=== PATIENT | female | born 1970 | race Caucasian/White ===

== ENCOUNTER 2020-04-15 13:42 | Observation (INO) ==
[~2020-04-15 13:42] MED LIST: DECADRON INJ ONE; DIPRIVAN VIAL ONE; NEOSTIGMINE INJ ONE; NORCURON INJ 10 MG VIAL ONE; QUELICIN (OR ANECTINE) ONE; ROBINUL ONE; SUPRANE ONE; VERSED ONE; ZOFRAN INJ 4 MG VIAL ONE
[2020-04-15 13:51] VITALS: BMI 48.9
--- NOTE | 2020-04-15 14:35 | DR.NAUSEAF ---
HPI Time Seen Time Seen by Provider: 04/15/20 14:35 Primary Care Physician Primary Care Physician: ERICA Complaints Chief Complaint:: PT. C/O NAUSEA/VOMITING/DIARRHEA. PT. C/O ABDOMINAL PAIN. PT. HAD HERNIA REPAIR LAST YEAR. PT. SEEN DR. MALDONADO ON THURSDAY. COVID-19 Coronavirus risk:travel/contact w/high risk person: No Has patient experienced Coronavirus symptoms: No Source History Provided: Patient Mode of Arrival Mode of Arrival: Ambulatory Timing Onset of Chief Complaint: 04/13/20 PMH PMH Past Medical History: Yes Past Medical History: Hypertension Past Surgical History: Yes Surgical History: , Cholecystectomy and Other Past Surgical History Comment: HERNIA REPAIR Family History History of Family Medical Conditions: Yes Family Medical History: Diabetes Mellitus, Cancer and Hypertension Social History Does patient currently use any type of tobacco product: No Have you used tobacco products in the last 12 months: No Type of Tobacco Use: None Does any household member use tobacco: No Alcohol Use: None Do you use any recreational Drugs:: No Lives With: Spouse Lives Where: Home Travel Risk Coronavirus risk:travel/contact w/high risk person: No Has patient experienced Coronavirus symptoms: No Infectious screening In the last 2 months have you had wt loss of >10#?: NO Have you had fever, night sweats or hemotysis?: No Have you traveled outside the country in the last 6 months?: No Isolation: Standard PE Vital Signs Vitals: Temperature 97.2 F Pulse Rate 112 Respiratory Rate 17 Blood Pressure [Left Arm] 126/59 Blood Pressure [Right Arm] 134/78 Blood Pressure 139/87 O2 Sat by Pulse Oximetry 95 ROR Labs Reviewed Result Diagrams: 04/15/20 15:05 04/15/20 15:05 Laboratory: WBC 10.7 X10^3/uL (3.6-10.0) H 04/15/20 15:05 RBC 4.68 X10^6/uL (3.5-5.4) 04/15/20 15:05 Hgb 13.4 g/dL (12.0-16.0) 04/15/20 15:05 Hct 40.1 % (36.0-47.0) 04/15/20 15:05 MCV 85.6 fL (80.0-100.0) 04/15/20 15:05 MCH 28.7 pg (27.0-34.0) 04/15/20 15:05 MCHC 33.5 g/dL (33.0-35.0) 04/15/20 15:05 RDW 14.3 % (11.6-16.5) 04/15/20 15:05 Plt Count 393 X10^3/uL (150.0-450.0) 04/15/20 15:05 MPV 6.9 fL (7.4-11.0) L 04/15/20 15:05 Neut % (Auto) 73.2 % (42.0-75.0) 04/15/20 15:05 Lymph % (Auto) 19.1 % (21.0-51.0) L 04/15/20 15:05 [place] % (Auto) 6.1 % (0.0-13.0) 04/15/20 15:05 Eos % (Auto) 1.1 % (0.9-2.9) 04/15/20 15:05 Baso % (Auto) 0.5 % (0.2-1.0) 04/15/20 15:05 Neut # (Auto) 7.8 x10^3/uL (2.2-4.8) H 04/15/20 15:05 Lymph # (Auto) 2.0 X10^3/uL (1.3-2.9) 04/15/20 15:05 [place] # (Auto) 0.7 x10^3/uL (0.3-0.8) 04/15/20 15:05 Eos # (Auto) 0.1 x10^3/uL (0.0-0.2) 04/15/20 15:05 Baso # (Auto) 0.1 X10^3/uL (0.0-0.1) 04/15/20 15:05 Absolute Nucleated RBC 0.0 /100WBC 04/15/20 15:05 Sodium 137 mmol/L (136-145) 04/15/20 15:05 Corrected Sodium TNP 04/15/20 15:05 Potassium 3.9 mmol/L (3.5-5.1) 04/15/20 15:05 Chloride 98 mmol/L (98-107) 04/15/20 15:05 Carbon Dioxide 32.8 mmol/L (21-32) H 04/15/20 15:05 BUN 19 mg/dL (7-18) H 04/15/20 15:05 Creatinine 1.03 mg/dL (0.55-1.02) H 04/15/20 15:05 Est GFR (MDRD) Af Amer > 60 (>60) 04/15/20 15:05 Est GFR (MDRD) Non-Af > 60 (>60) 04/15/20 15:05 Glucose 106 mg/dL (65-99) H 04/15/20 15:05 Calcium 9.3 mg/dL (8.5-10.1) 04/15/20 15:05 Corrected Calcium TNP 04/15/20 15:05 Total Bilirubin 0.60 mg/dL (0.2-1.0) 04/15/20 15:05 AST 37 Units/L (15-37) 04/15/20 15:05 ALT 68 Units/L (12-78) 04/15/20 15:05 Alkaline Phosphatase 81 Units/L (46-116) 04/15/20 15:05 Total Protein 9.1 g/dL (6.4-8.2) H 04/15/20 15:05 Albumin 4.2 g/dL (3.4-5.0) 04/15/20 15:05 Globulin 4.9 g/dL (2.5-4.5) H 04/15/20 15:05 Albumin/Globulin Ratio 0.9 Ratio (1.1-2.1) L 04/15/20 15:05 Amylase 32 Units/L (25-115) 04/15/20 15:05 Lipase 88 Units/L (73-393) 04/15/20 15:05 Opioid Opioid Risk Tool Age (Irineo box if 16-45): No History of Preadolescent Sexual Abuse: No Total: 0 Total Score Risk Category: Low Risk Copyright: Torres PARKER predicting aberrant behaviors
[2020-04-15] MEDS ORDERED: ZOFRAN INJ 4 MG VIAL ONE (15:02)
[2020-04-15] MEDS ORDERED: ZOFRAN INJ 4 MG VIAL IVP ONE (15:02)
[2020-04-15 15:14] LABS: BASOPHILS # (AUTO) 0.1 X10^3/uL (0.0-0.1); BASOPHILS % (AUTO) 0.5 % (0.2-1.0); EOSINOPHILS # (AUTO) 0.1 x10^3/uL (0.0-0.2); EOSINOPHILS % (AUTO) 1.1 % (0.9-2.9); HEMATOCRIT 40.1 % (36.0-47.0); HEMOGLOBIN 13.4 g/dL (12.0-16.0); LYMPHOCYTES % (AUTO) 19.1 % (21.0-51.0); MEAN CORPUSCULAR HEMOGLOBIN 28.7 pg (27.0-34.0); MEAN CORPUSCULAR HGB CONC 33.5 g/dL (33.0-35.0); MEAN CORPUSCULAR VOLUME 85.6 fL (80.0-100.0); MEAN PLATELET VOLUME 6.9 fL (7.4-11.0); MONOCYTES # (AUTO) 0.7 x10^3/uL (0.3-0.8); MONOCYTES % (AUTO) 6.1 % (0.0-13.0); NEUTROPHILS # (AUTO) 7.8 x10^3/uL (2.2-4.8); NEUTROPHILS % (AUTO) 73.2 % (42.0-75.0); PLATELET COUNT 393 X10^3/uL (150.0-450.0); RED BLOOD COUNT 4.68 X10^6/uL (3.5-5.4); RED CELL DISTRIBUTION WIDTH 14.3 % (11.6-16.5); WHITE BLOOD COUNT 10.7 X10^3/uL (3.6-10.0)
[2020-04-15 15:26] LABS: ALANINE AMINOTRANSFERASE 68 Units/L (12-78); ALBUMIN 4.2 g/dL (3.4-5.0); ALKALINE PHOSPHATASE 81 Units/L (46-116); AMYLASE 32 Units/L (25-115); ASPARTATE AMINO TRANSFERASE 37 Units/L (15-37); BLOOD UREA NITROGEN 19 mg/dL (7-18); CALCIUM 9.3 mg/dL (8.5-10.1); CARBON DIOXIDE 32.8 mmol/L (21-32); CHLORIDE 98 mmol/L (98-107); CREATININE 1.03 mg/dL (0.55-1.02); LIPASE 88 Units/L (73-393); SODIUM 137 mmol/L (136-145); TOTAL PROTEIN 9.1 g/dL (6.4-8.2); eGFR NON BLACK RACES > 60 (>60)
--- NOTE | 2020-04-15 17:55 | CT ---
HISTORYPT. C/O NAUSEA/VOMITING/DIARRHEA. PT. C/O ABDOMINAL PAIN. PT. HAD HERNIA REPAIR LAST YEARSTUDYABDOMEN/PELVIS WITH CONCOMPARISONNovember 2018TECHNIQUEMultiple axial images of the abdomen and pelvis were obtained from the lung bases to the pubic symphysis after the administration of IV contrast. Dose reduction techniques including Automated Exposure Control (AEC) and adjustment of mA and kV were utilized.FINDINGSThe visualized portions of the lung bases are unremarkable . The liver, spleen, pancreas, kidneys, and adrenal glands are unremarkable in their CT appearance. The gallbladder is surgically absent.. No significant mesenteric lymphadenopathy or stranding can be observed. No free areas identified. There is a persistent abdominal wall hernia with some dilated loops of small bowel which appear transition to a narrowing at the level of hernia. These findings are compatible with small bowel obstruction and surgical consultation will be needed. The colon is unremarkable. Specifically, there is no diverticulosis noted within the sigmoid colon. The appendix is normal.. The urinary bladder is grossly unremarkable. The bony structures are grossly intact.IMPRESSIONFindings as above compatible small bowel obstruction with a transition point in an anterior abdominal wall hernia.Electronically signed by: VADIM WOMACK (Apr 15, 2020 17:53:37)
[2020-04-15 19:44] LABS: BILIRUBIN,URINE 1+ (NEGATIVE); BLOOD/HEMOGLOBIN,URINE 1+ (NEGATIVE); GLUCOSE, URINE NEGATIVE (NEGATIVE); KETONES,URINE NEGATIVE (NEGATIVE); LEUKOCYTE ESTERASE ,URINE 1+ (NEGATIVE); NITRITES,URINE NEGATIVE (NEGATIVE); PROTEIN,URINE 2+ (NEGATIVE); UROBILINOGEN,URINE NORMAL (NORMAL)
[2020-04-15] MEDS ORDERED: NS 1000 ML 1,000 ML ONE (19:54)
[2020-04-15 20:19] LABS: APPEARANCE,URINE CLEAR (CLEAR); BACTERIA,URINE TRACE /HPF (NEGATIVE); COLOR,URINE DARK YELLOW (YELLOW); RBC,URINE 0-2 /HPF (0-3); SQUAMOUS EPITHELIAL CELL,UR MODERATE /HPF (NEGATIVE)
[2020-04-15] MEDS: NS 1000 ML 1,000 ML IV SCH (20:30)
[2020-04-15] MEDS ORDERED: ZOFRAN INJ 4 MG VIAL IVP PRN (20:32)
[2020-04-15] MEDS ORDERED: MORPHINE SULFATE INJ 2 MG INJ IVP PRN (20:32)
[2020-04-15] MEDS: ROCEPHIN VIAL 1 GRAM 1 G in NS 100 ML IV + SPIKE MINIBAG* 100 ML IV SCH (23:00)
[2020-04-16 02:06] LABS: CRYPTOSPORIDIUM PARVUM ANTIGEN NEGATIVE (NEGATIVE); GIARDIA LAMBLIA ANTIGEN NEGATIVE (NEGATIVE)
[2020-04-16] MEDS: NS 1000 ML 1,000 ML IV SCH ×4 (04:30→21:17)
[2020-04-16 06:37] LABS: ALANINE AMINOTRANSFERASE 65 Units/L (12-78); ALBUMIN 3.5 g/dL (3.4-5.0); ALKALINE PHOSPHATASE 69 Units/L (46-116); ASPARTATE AMINO TRANSFERASE 35 Units/L (15-37); BASOPHILS % (AUTO) 0.4 % (0.2-1.0); BLOOD UREA NITROGEN 16 mg/dL (7-18); CALCIUM 8.8 mg/dL (8.5-10.1); CARBON DIOXIDE 30.5 mmol/L (21-32); CHLORIDE 102 mmol/L (98-107); CREATININE 0.97 mg/dL (0.55-1.02); EOSINOPHILS # (AUTO) 0.1 x10^3/uL (0.0-0.2); EOSINOPHILS % (AUTO) 1.6 % (0.9-2.9); LYMPHOCYTES # (AUTO) 1.4 X10^3/uL (1.3-2.9); LYMPHOCYTES % (AUTO) 16.1 % (21.0-51.0); MEAN CORPUSCULAR HEMOGLOBIN 28.8 pg (27.0-34.0); MEAN CORPUSCULAR HGB CONC 33.3 g/dL (33.0-35.0); MEAN CORPUSCULAR VOLUME 86.6 fL (80.0-100.0); MEAN PLATELET VOLUME 7.2 fL (7.4-11.0); MONOCYTES # (AUTO) 0.7 x10^3/uL (0.3-0.8); MONOCYTES % (AUTO) 7.5 % (0.0-13.0); NEUTROPHILS # (AUTO) 6.6 x10^3/uL (2.2-4.8); NEUTROPHILS % (AUTO) 74.4 % (42.0-75.0); PLATELET COUNT 331 X10^3/uL (150.0-450.0); RED BLOOD COUNT 4.16 X10^6/uL (3.5-5.4); RED CELL DISTRIBUTION WIDTH 14.5 % (11.6-16.5); SODIUM 138 mmol/L (136-145); WHITE BLOOD COUNT 8.8 X10^3/uL (3.6-10.0); eGFR NON BLACK RACES > 60 (>60)
[2020-04-16] MEDS: ROCEPHIN VIAL 1 GRAM 1 G in NS 100 ML IV + SPIKE MINIBAG* 100 ML IV SCH (08:08)
--- NOTE | 2020-04-16 11:03 | DR.PROGNOT ---
Hospital Progress Notes - Progress Note for Day of: Progress Note Date: 04/16/20 - Chief Complaint Chief Complaint: abdominal pain with nausea , vomiting . severe cramps with large painful bulge around the umbilicus . abdominal CT showed SBO 2nd to incarcerated ventral hernia . - Past Medical Family Social History Past Med/Fam/Surg Hx: No changes since H&P Allergies: Allergies No Known Drug Allergies Allergy (Verified 04/15/20 13:51) - Review Of Systems ROS: No change since H&P - Vital Signs Vital Signs: Temperature 97.5 F Pulse Rate [Left Brachial] 83 Pulse Rate 112 Respiratory Rate 18 Blood Pressure [Left Arm] 124/59 Blood Pressure [Right Arm] 126/60 Blood Pressure 139/87 O2 Sat by Pulse Oximetry 96 - Physical Exam Oriented: Normal Eyes: Normal Ear: Normal Nose: Normal Respiratory: Normal Cardiovascular: Normal GI:Palpation: Other GI: Tenderness: Periumbilical (tender large ventral hernia around the umbilicus .) Skin: Normal Speech Pattern: Clear, Appropriate - Laboratory and Diagnostics Result Diagrams: 04/16/20 05:50 04/16/20 05:50 Labs: 04/15/20 22:50 Stool - Final Laboratory WBC 8.8 X10^3/uL (3.6-10.0) 04/16/20 05:50 RBC 4.16 X10^6/uL (3.5-5.4) 04/16/20 05:50 Hgb 12.0 g/dL (12.0-16.0) 04/16/20 05:50 Hct 36.0 % (36.0-47.0) 04/16/20 05:50 MCV 86.6 fL (80.0-100.0) 04/16/20 05:50 MCH 28.8 pg (27.0-34.0) 04/16/20 05:50 MCHC 33.3 g/dL (33.0-35.0) 04/16/20 05:50 RDW 14.5 % (11.6-16.5) 04/16/20 05:50 Plt Count 331 X10^3/uL (150.0-450.0) 04/16/20 05:50 MPV 7.2 fL (7.4-11.0) L 04/16/20 05:50 Neut % (Auto) 74.4 % (42.0-75.0) 04/16/20 05:50 Lymph % (Auto) 16.1 % (21.0-51.0) L 04/16/20 05:50 [place] % (Auto) 7.5 % (0.0-13.0) 04/16/20 05:50 Eos % (Auto) 1.6 % (0.9-2.9) 04/16/20 05:50 Baso % (Auto) 0.4 % (0.2-1.0) 04/16/20 05:50 Neut # (Auto) 6.6 x10^3/uL (2.2-4.8) H 04/16/20 05:50 Lymph # (Auto) 1.4 X10^3/uL (1.3-2.9) 04/16/20 05:50 [place] # (Auto) 0.7 x10^3/uL (0.3-0.8) 04/16/20 05:50 Eos # (Auto) 0.1 x10^3/uL (0.0-0.2) 04/16/20 05:50 Baso # (Auto) 0.0 X10^3/uL (0.0-0.1) 04/16/20 05:50 Absolute Nucleated RBC 0.0 /100WBC 04/16/20 05:50 Sodium 138 mmol/L (136-145) 04/16/20 05:50 Corrected Sodium TNP 04/16/20 05:50 Potassium 3.6 mmol/L (3.5-5.1) 04/16/20 05:50 Chloride 102 mmol/L (98-107) 04/16/20 05:50 Carbon Dioxide 30.5 mmol/L (21-32) 04/16/20 05:50 BUN 16 mg/dL (7-18) 04/16/20 05:50 Creatinine 0.97 mg/dL (0.55-1.02) 04/16/20 05:50 Est GFR (MDRD) Af Amer > 60 (>60) 04/16/20 05:50 Est GFR (MDRD) Non-Af > 60 (>60) 04/16/20 05:50 Glucose 98 mg/dL (65-99) 04/16/20 05:50 Calcium 8.8 mg/dL (8.5-10.1) 04/16/20 05:50 Corrected Calcium TNP 04/16/20 05:50 Total Bilirubin 0.50 mg/dL (0.2-1.0) 04/16/20 05:50 AST 35 Units/L (15-37) 04/16/20 05:50 ALT 65 Units/L (12-78) 04/16/20 05:50 Alkaline Phosphatase 69 Units/L (46-116) 04/16/20 05:50 Total Protein 8.0 g/dL (6.4-8.2) 04/16/20 05:50 Albumin 3.5 g/dL (3.4-5.0) 04/16/20 05:50 Globulin 4.5 g/dL (2.5-4.5) 04/16/20 05:50 Albumin/Globulin Ratio 0.8 Ratio (1.1-2.1) L 04/16/20 05:50 Amylase 32 Units/L (25-115) 04/15/20 15:05 Lipase 88 Units/L (73-393) 04/15/20 15:05 Specimen Type Clean catch urine 04/15/20 19:33 Urine Color Dark yellow (YELLOW) 04/15/20: Urine Appearance Clear (CLEAR) 04/15/20 19: Urine pH 5.0 (5.0 - 8.0) 04/15/20 19:33 Ur Specific [place] 1.020 (1.000-1.030) 04/15/20 19:33 Urine Protein 2+ (NEGATIVE) 04/15/20: Urine Glucose (UA) Negative (NEGATIVE) 04/15/20 19: Urine Ketones Negative (NEGATIVE) 04/15/20 19: Urine Occult Blood 1+ (NEGATIVE) 04/15/20: Urine Nitrite Negative (NEGATIVE) 04/15/20: Urine Bilirubin 1+ (NEGATIVE) 04/15/20 19: Urine Urobilinogen Normal (NORMAL) 04/15/20 19: Ur Leukocyte Esterase 1+ (NEGATIVE) 04/15/20 19:33 Urine RBC 0-2 /HPF (0-3) 04/15/20 19: Urine WBC 0-2 /HPF (0-5) 04/15/20 19:33 Ur Squamous Epith Cells Moderate /HPF (NEGATIVE) 04/15/20 19:33 Urine Bacteria Trace /HPF (NEGATIVE) 04/15/20 19:33 Ur Culture Indicated? No/not indicated 04/15/20 19:33 Stool Description 250 g. liquid 04/15/20 22:50 Stool Description 250 g. liquid 04/15/20 22:50 Stl Occult Blood (IFOB) Negative (NEGATIVE) 04/15/20 22:50 Stool for White Cells Positive (NEGATIVE) A 04/15/20 22:50 Stl C. diff Tox B Gene Negative (NEGATIVE) 04/15/20 22:50 Stl C. diff [id number] Negative (NEGATIVE) 04/15/20 22:50 Cryptosporid parvum Ag Negative (NEGATIVE) 04/15/20 22:50 Giardia lamblia Ag Negative (NEGATIVE) 04/15/20 22:50 - Assessment and Plan 1: small bowel obstruction within incarcerated , recurrent incisional hernia around the umbilicus . morbid obesity . HTN . to keep NPO . hydration and plan for laparotomy and repair in incarcerated ventral hernia , possible bowel resection .
[2020-04-16] MEDS ORDERED: POLYMYXIN B SULFATE ONE (11:12)
--- NOTE | 2020-04-16 11:16 | RAD ---
HISTORYPREOP FOR HERNIA SXSTUDYCHEST, 1 VIEWCOMPARISONNoneFINDINGSThe lungs are clear. No pneumothorax or significant effusion.Heart size is normal.Bones are unremarkable.IMPRESSION1. No significant abnormalityElectronically signed by: Mu Perez (Apr 16, 2020 11:14:11)
[2020-04-16] MEDS ORDERED: ANCEF 1 GRAM IV PREMIX* 2 G/100 ML BAG IV ONE (11:24)
[2020-04-16] MEDS ORDERED: FENTANYL INJ 250 mcg ONE (11:28)
[2020-04-16] MEDS ORDERED: LR 1000 ML IV 1,000 ML IV ONE (11:53)
[2020-04-16] MEDS ORDERED: SUPRANE ONE (12:43)
[2020-04-16] MEDS ORDERED: DILAUDID INJ ONE (12:43)
[2020-04-16] MEDS ORDERED: DILAUDID INJ IVP PRN (13:01)
[2020-04-16] MEDS ORDERED: PHENERGAN INJ 25 MG IM PRN (13:01)
[2020-04-16] MEDS ORDERED: REGLAN INJ 10 MG VIAL IVP PRN (13:01)
[2020-04-16] MEDS ORDERED: ZOFRAN INJ 4 MG VIAL IVP PRN (13:01)
[2020-04-16] MEDS ORDERED: BENADRYL INJ 50 MG VIAL IVP PRN (13:01)
[2020-04-16] MEDS ORDERED: MARCAINE 0.5% ONE (13:11)
[2020-04-16] MEDS: DILAUDID INJ IVP PRN (14:55)
[2020-04-16] MEDS: ANCEF VIAL 1 GRAM IVP SCH ×2 (15:03→21:16)
[2020-04-16] MEDS: D5 1/2 NS 1000 ML 1,000 ML IV SCH ×2 (15:04→22:23)
[2020-04-17] MEDS: NS 1000 ML 1,000 ML IV SCH ×2 (03:33→14:32)
[2020-04-17] MEDS: ANCEF VIAL 1 GRAM IVP SCH ×2 (05:18→14:48)
[2020-04-17] MEDS: DILAUDID INJ IVP PRN (05:55)
[2020-04-17 06:07] LABS: BASOPHILS % (AUTO) 0.2 % (0.2-1.0); EOSINOPHILS # (AUTO) 0.1 x10^3/uL (0.0-0.2); EOSINOPHILS % (AUTO) 0.8 % (0.9-2.9); HEMATOCRIT 33.8 % (36.0-47.0); HEMOGLOBIN 11.4 g/dL (12.0-16.0); LYMPHOCYTES # (AUTO) 1.3 X10^3/uL (1.3-2.9); LYMPHOCYTES % (AUTO) 10.6 % (21.0-51.0); MEAN CORPUSCULAR HEMOGLOBIN 28.8 pg (27.0-34.0); MEAN CORPUSCULAR HGB CONC 33.6 g/dL (33.0-35.0); MEAN CORPUSCULAR VOLUME 85.7 fL (80.0-100.0); MEAN PLATELET VOLUME 7.2 fL (7.4-11.0); MONOCYTES # (AUTO) 0.8 x10^3/uL (0.3-0.8); NEUTROPHILS # (AUTO) 9.8 x10^3/uL (2.2-4.8); NEUTROPHILS % (AUTO) 81.4 % (42.0-75.0); PLATELET COUNT 337 X10^3/uL (150.0-450.0); RED BLOOD COUNT 3.95 X10^6/uL (3.5-5.4); RED CELL DISTRIBUTION WIDTH 14.1 % (11.6-16.5); WHITE BLOOD COUNT 12.1 X10^3/uL (3.6-10.0)
[2020-04-17] MEDS: D5 1/2 NS 1000 ML 1,000 ML IV SCH ×2 (06:07→14:48)
[2020-04-17 06:08] LABS: ALANINE AMINOTRANSFERASE 55 Units/L (12-78); ALBUMIN 3.3 g/dL (3.4-5.0); ALKALINE PHOSPHATASE 64 Units/L (46-116); ASPARTATE AMINO TRANSFERASE 22 Units/L (15-37); BLOOD UREA NITROGEN 10 mg/dL (7-18); CALCIUM 8.4 mg/dL (8.5-10.1); CARBON DIOXIDE 29.7 mmol/L (21-32); CHLORIDE 100 mmol/L (98-107); COR NA(FOR HYPERGLY) 136 mmol/L (136-145); CREATININE 0.76 mg/dL (0.55-1.02); SODIUM 136 mmol/L (136-145); TOTAL PROTEIN 7.6 g/dL (6.4-8.2); eGFR NON BLACK RACES > 60 (>60)
[2020-04-17] MEDS: ROCEPHIN VIAL 1 GRAM 1 G in NS 100 ML IV + SPIKE MINIBAG* 100 ML IV SCH (08:55)
[2020-04-17] MEDS ORDERED: LOVENOX INJ 40 MG SYR SC SCH (09:00)
[2020-04-17] MEDS ORDERED: PERCOCET TAB 5/325 MG PO PRN (09:15)
[2020-04-17 13:04] VITALS: BP 130/68
== END 2020-04-17 15:35 | disposition home or self-care (01) ==
LOC: ER 13:46 → MED/SURG 13:46
PROVIDERS: ADMIT Family Medicine; ATTEND Obstetrics & Gynecology Obstetrics